=== PATIENT | male | born 1940 | race African-American/Black ===

== ENCOUNTER 2019-03-10 14:07 | Inpatient (IN) ==
[2019-03-10 15:03] LABS: Basophils % 0.6 % (0.0-0.8); Eosinophils # 0.1 10*3/uL (0.0-0.87); Eosinophils % 2.5 % (0.00-10.9); Hematocrit 38.4 VOL% (42.0-52.0); Immature Granulocytes % 0.2 %; Immature Granulocytes Absolute 0.01 #; Lymphocytes # 0.8 10*3/uL (1.4-4.0); Lymphocytes % 15.4 % (21.2-54.2); Mean Corpuscular HGB Conc 31.3 GM/DL (32-36); Mean Corpuscular Volume 88.9 FL (87-102); Mean Platelet Volume 11.5 FL (9.6-12.0); Monocytes % 10.7 % (1.7-12.7); Neutrophils % 70.6 % (38.7-73.9); Platelet Count 136 T/CUMM (130-400); Red Blood Count 4.32 MC/CUMM (3.8-5.5); Red Cell Distribution Width 14.1 % (9.3-17.3); White Blood Count 4.9 T/CUMM (4-12)
[2019-03-10 15:18] LABS: PT Patient Result 10.6 SECS (9.6-12.2); Partial Thromboplastin Time 22.7 SECS (20.8-36.0)
[2019-03-10 15:22] LABS: Albumin 3.2 G/DL (3.4-5.0); Bilirubin,Total 0.4 MG/DL (0.2-1.0); Calcium 8.9 MG/DL (8.5-10.1); Osmolality,Calculated 289.4 MOS/KG (273-304); Total Protein 6.9 G/DL (6.4-8.3)
[2019-03-10 15:55] LABS: ABG Base Excess 1.5 MMOL/L (-2.5-2.5); ABG HCO3 25.5 MMOL/L (20-26); ABG PCO2 43.9 MM HG (35-48); ABG PH 7.392 (7.35-7.45); ABG PO2 63.6 MM HG (80-95); ABG TCO2 23.9 MMOL/L (23-27)
[2019-03-10] MEDS ORDERED: ACETAMINOPHEN 325 MG TABLET PO PRN (16:43)
[2019-03-10] MEDS ORDERED: ONDANSETRON 4 MG/2 ML VIAL IV PRN (16:43)
[2019-03-10] MEDS ORDERED: ALBUTEROL/IPRATROPIUM 3 ML NEB RESP TX PRN (16:43)
[2019-03-10] MEDS ORDERED: NOREPINEPHRINE 8 MG in SODIUM CHLORIDE 0.9% 242 ML IV SCH (17:00)
[2019-03-10] MEDS ORDERED: PANTOPRAZOLE 40 MG VIAL IV SCH (17:00)
[2019-03-10 17:12] LABS: Apearance,Urine Slightly Hazy (Clear); Bilirubin,Urine Negative (Negative); Blood, Urine Small mg/dL (Negative); Glucose,Urine (UA) 50 mg/dL (Negative); Hyaline Casts,Urine 24 /LPF (0-3); Ketones,Urine Negative (Negative); Mucus,Urine Occasional /LPF (Occasional); Nitrite,Urine Negative (Negative); Protein,Urine 30 MG/DL; RBC,Urine 3 /HPF (0-4); Squamous Epithelial Cell,Urine Occasional /HPF (0-10); Urine Color Yellow (Yellow); Urine Specific Gravity 1.016 (1.001-1.035); Urine Urobilinogen < 2.0 EU/DL (0.2-1.0); WBC,Urine 2 /HPF (0-6)
[2019-03-10] MEDS: MEMANTINE 10 MG TABLET PO SCH (21:52)
[2019-03-10] MEDS: HEPARIN 5,000 UNIT/1 ML VIAL SUBCUT SCH (21:52)
[2019-03-10] MEDS: SODIUM CHLORIDE 0.45% 1,000 ML IV SCH (21:57)
[2019-03-11 05:18] LABS: Basophils % 0.8 % (0.0-0.8); Eosinophils # 0.2 10*3/uL (0.0-0.87); Eosinophils % 4.1 % (0.00-10.9); Hematocrit 37.1 VOL% (42.0-52.0); Hemoglobin 11.5 GM/DL (14.0-18.0); Immature Granulocytes % 0.3 %; Immature Granulocytes Absolute 0.01 #; Lymphocytes # 1.2 10*3/uL (1.4-4.0); Lymphocytes % 30.7 % (21.2-54.2); Mean Platelet Volume 11.4 FL (9.6-12.0); Monocytes % 10.7 % (1.7-12.7); Neutrophils % 53.4 % (38.7-73.9); Platelet Count 133 T/CUMM (130-400); Red Blood Count 4.17 MC/CUMM (3.8-5.5); White Blood Count 3.9 T/CUMM (4-12)
[2019-03-11 05:41] LABS: Albumin 3.1 G/DL (3.4-5.0); Bilirubin,Total 0.4 MG/DL (0.2-1.0); Calcium 8.6 MG/DL (8.5-10.1); Osmolality,Calculated 287.3 MOS/KG (273-304); Risk Ratio 1.8; Thyroid Stimulating Hormone 3.15 uIU/ml (0.358-3.74); Total Protein 6.2 G/DL (6.4-8.3)
[2019-03-11] MEDS: SODIUM CHLORIDE 0.45% 1,000 ML IV SCH ×3 (05:54→19:55)
[2019-03-11] MEDS: HEPARIN 5,000 UNIT/1 ML VIAL SUBCUT SCH ×3 (07:09→21:37)
[2019-03-11] MEDS: LEVOTHYROXINE 50 MCG TABLET PO SCH (07:45)
[2019-03-11] MEDS: ASPIRIN EC 81 MG TABLET PO SCH (09:14)
[2019-03-11] MEDS: DORZOLAMIDE/TIMOLOL OPH SOLN 10 ML BOTTLE BOTH EYES SCH (09:14)
[2019-03-11] MEDS: OMEGA 3 ACID ETHYL ESTERS 1 GM CAPSULE PO SCH (09:14)
[2019-03-11] MEDS: MEMANTINE 10 MG TABLET PO SCH ×2 (09:14→21:36)
[2019-03-11] MEDS: CHOLECALCIFEROL 5,000 UNIT TABLET PO SCH (09:14)
[2019-03-11] MEDS: OLMESARTAN 20 MG TABLET PO SCH (09:14)
[2019-03-11] MEDS: ISOSORBIDE MONONITRATE 30 MG TABLET PO SCH (09:14)
[2019-03-11] MEDS: PANTOPRAZOLE 40 MG TABLET PO SCH (09:14)
[2019-03-11] MEDS: CALCIUM (CARBONATE)/VITAMIN D 600 MG-400 UNIT TABLET PO SCH (09:14)
[2019-03-11] MEDS: MULTIVITAMIN (CENTRUM) TABLET PO SCH (09:14)
[2019-03-11 11:43] LABS: Troponin I < 0.015 NG/ML (0.00-0.045)
[2019-03-11 13:40] LABS: Troponin I < 0.015 NG/ML (0.00-0.045)
[2019-03-11 17:03] LABS: Troponin I < 0.015 NG/ML (0.00-0.045)
[2019-03-11] MEDS ORDERED: SIMVASTATIN 10 MG TABLET PO SCH (21:00)
[2019-03-11] MEDS ORDERED: DONEPEZIL 5 MG TABLET PO SCH (21:00)
[2019-03-12] MEDS: SODIUM CHLORIDE 0.45% 1,000 ML IV SCH ×3 (03:27→11:37)
[2019-03-12 05:05] LABS: Basophils % 1.1 % (0.0-0.8); Eosinophils # 0.2 10*3/uL (0.0-0.87); Eosinophils % 4.2 % (0.00-10.9); Hematocrit 38.3 VOL% (42.0-52.0); Hemoglobin 12.2 GM/DL (14.0-18.0); Immature Granulocytes % 0.3 %; Immature Granulocytes Absolute 0.01 #; Lymphocytes # 1.4 10*3/uL (1.4-4.0); Lymphocytes % 35.5 % (21.2-54.2); Mean Corpuscular HGB Conc 31.9 GM/DL (32-36); Mean Corpuscular Volume 86.5 FL (87-102); Mean Platelet Volume 11.7 FL (9.6-12.0); Monocytes % 11.3 % (1.7-12.7); Neutrophils % 47.6 % (38.7-73.9); Platelet Count 132 T/CUMM (130-400); Red Blood Count 4.43 MC/CUMM (3.8-5.5); Red Cell Distribution Width 13.8 % (9.3-17.3); White Blood Count 3.8 T/CUMM (4-12)
[2019-03-12 06:00] LABS: Calcium 8.8 MG/DL (8.5-10.1); Calcium 8.9 MG/DL (8.5-10.1); Osmolality,Calculated 287.8 MOS/KG (273-304); Osmolality,Calculated 290.6 MOS/KG (273-304)
[2019-03-12 06:01] LABS: Albumin 3.2 G/DL (3.4-5.0); Bilirubin,Total 0.6 MG/DL (0.2-1.0); Calcium 8.7 MG/DL (8.5-10.1); Total Protein 6.6 G/DL (6.4-8.3)
[2019-03-12] MEDS: LEVOTHYROXINE 50 MCG TABLET PO SCH (06:02)
[2019-03-12] MEDS: HEPARIN 5,000 UNIT/1 ML VIAL SUBCUT SCH (06:02)
[2019-03-12] MEDS ORDERED: POTASSIUM CHLORIDE 20 MEQ TABLET PO ONE (07:38)
[2019-03-12] MEDS ORDERED: FUROSEMIDE 40 MG TABLET PO PRN (08:42)
[2019-03-12] MEDS: OMEGA 3 ACID ETHYL ESTERS 1 GM CAPSULE PO SCH (08:53)
[2019-03-12] MEDS: DORZOLAMIDE/TIMOLOL OPH SOLN 10 ML BOTTLE BOTH EYES SCH (08:53)
[2019-03-12] MEDS: OLMESARTAN 20 MG TABLET PO SCH (08:54)
[2019-03-12] MEDS: MEMANTINE 10 MG TABLET PO SCH (08:54)
[2019-03-12] MEDS: CALCIUM (CARBONATE)/VITAMIN D 600 MG-400 UNIT TABLET PO SCH (08:54)
[2019-03-12] MEDS: ISOSORBIDE MONONITRATE 30 MG TABLET PO SCH (08:54)
[2019-03-12] MEDS: ASPIRIN EC 81 MG TABLET PO SCH (08:54)
[2019-03-12] MEDS: MULTIVITAMIN (CENTRUM) TABLET PO SCH (08:54)
[2019-03-12] MEDS: PANTOPRAZOLE 40 MG TABLET PO SCH (08:54)
[2019-03-12] MEDS: CHOLECALCIFEROL 5,000 UNIT TABLET PO SCH (08:54)
[2019-03-12] MEDS ORDERED: VENLAFAXINE XR 75 MG CAPSULE PO SCH (09:00)
[2019-03-12] MEDS ORDERED: CARVEDILOL 3.125 MG TABLET PO SCH (09:00)
[2019-03-12 12:10] VITALS: BP 154/94
[2019-03-12] MEDS ORDERED: DONEPEZIL 10 MG TABLET PO SCH (21:00)
[2019-03-12] MEDS ORDERED: MIRTAZAPINE 30 MG TABLET PO SCH (21:00)
== END 2019-03-12 14:58 | disposition home health service (06) | DRG 641 ==
LOC: N.ED 14:07 → SUATTDRO 16:43 → N.EDINP 16:43 → N.5E 17:58
PROVIDERS: ADMIT Internal Medicine; ATTEND Internal Medicine Geriatric Medicine